=== PATIENT | female | born 1975 | race Two or more races ===

== ENCOUNTER 2021-02-28 22:08 | Emergency (ER) | payer MEDICAID ==
[~2021-02-28] VITALS: Ht 160 cm; Wt 52.6 kg
[2021-03-01] MEDS ORDERED: HYDR-3972 PO (00:24)
[2021-03-01] MEDS ORDERED: CEPH500C2 PO (00:24)
[2021-03-01 00:42] VITALS: BP 122/82
--- NOTE | 2021-03-01 00:43 | NUR ---
Patient discharged to home in stable condition. Written and verbal after care instructions given. Patient verbalizes understanding of instructions. Stressed follow up or return to ER for worsening s/s.
[2021-03-01] MEDS ORDERED: CEphaleXIN 500 MG CAPSULE ONE (00:45)
[2021-03-01] MEDS ORDERED: HYDROCODONE/APAP 5-325MG TABLET ONE (00:46)
[2021-03-01] MEDS ORDERED: CEphaleXIN 500 MG CAPSULE PO ONE (01:30)
[2021-03-01] MEDS ORDERED: HYDROCODONE/APAP 5-325MG TABLET PO ONE (01:30)
== END 2021-03-01 00:43 | disposition home or self-care (01) ==
LOC: ER 22:10
DX: S02.5XXA Fracture of tooth (traumatic), initial encounter for closed fracture (principal); X58.XXXA Exposure to other specified factors, initial encounter; Y92.89 Other specified places as the place of occurrence of the external cause; F17.210 Nicotine dependence, cigarettes, uncomplicated
CPT/HCPCS: A4663